=== PATIENT | female | born 1960 | race Caucasian/White ===

== ENCOUNTER 2017-05-12 08:14 | Outpatient (CLI) | payer BC | END 2017-05-12 08:15 | disposition home or self-care (01) | LOC: BICMAMMO 08:14 | PROVIDERS: ATTEND Obstetrics & Gynecology | DX: Z12.31 Encounter for screening mammogram for malignant neoplasm of breast (principal); R92.1 Mammographic calcification found on diagnostic imaging of breast | CPT/HCPCS: 77063; 77067 ==

== ENCOUNTER 2017-09-28 07:50 | Outpatient (CLI) | payer OTHER ==
--- NOTE | 2017-09-28 12:23 | NM ---
MYOCARDIAL PERFUSION STUDY: DATE: 09/28/17. HISTORY: Chest pain, unspecified. COMPARISON: 04/07/11. RADIOPHARMACEUTICALS: 32 mCi Technetium 99m sestamibi, IV at stress, and 10.1 mCi Technetium 99m sestamibi, IV at rest. This examination was performed as an exercise stress myocardial perfusion study following the routine Tino protocol. Resting heart rate is 80 b.p.m. with maximal heart rate of 142 b.p.m., which is 86% of the maximum predicted effective heart rate. FINDINGS: There is normal uptake and distribution of radiotracer seen in throughout the left ventricular myocar dium on both the stress and resting acquisitions. No reversible defect is identified. Quantitative analysis shows no significant reversible defect. Gated images show normal ventricular wall motion an d wall thickening. The calculated left ventricular ejection fraction is 83%. The calculated left ve ntricular ejection fraction on the prior study in 2010 was 76%. IMPRESSION: 1. Normal myocardial perfusion study without evidence of a reversible defect seen to suggest ischemi a. 2. Normal left ventricular ejection fraction of 83%. POS: NKECHI
== END 2017-09-28 07:51 | disposition home or self-care (01) ==
LOC: NM 07:50
PROVIDERS: ATTEND Family Medicine
DX: R07.9 Chest pain, unspecified (principal)
CPT/HCPCS: 78452; 93017; A9500

== ENCOUNTER 2017-11-15 13:02 | Outpatient (CLI) | payer OTHER | END 2017-11-15 13:03 | disposition home or self-care (01) | LOC: BICULT 13:02 | PROVIDERS: ATTEND Otolaryngology Plastic Surgery within the Head & Neck | DX: D49.7 Neoplasm of unspecified behavior of endocrine glands and other parts of nervous system (principal); R51 Headache; E04.1 Nontoxic single thyroid nodule | CPT/HCPCS: 76536 ==

== ENCOUNTER 2018-05-12 08:15 | Outpatient (CLI) | payer OTHER | END 2018-05-12 08:16 | disposition home or self-care (01) | LOC: BICMAMMO 08:15 | PROVIDERS: ATTEND Obstetrics & Gynecology | DX: Z12.31 Encounter for screening mammogram for malignant neoplasm of breast (principal) | CPT/HCPCS: 77063; 77067 ==

== ENCOUNTER 2019-05-23 12:14 | Outpatient (CLI) | payer OTHER ==
--- NOTE | 2019-05-23 13:11 | MMO ---
Bilateral MAMMO Bilat Screen [facility]. CLINICAL HISTORY: Patient is 58 years old and is seen for screening. The patient has no family history of breast cancer. The patient has no personal history of cancer. The patient has a history of Breast reduction in August,. VIEWS: The views performed were: bilateral craniocaudal with tomosynthesis; bilateral mediolateral oblique with tomosynthesis; and bilateral exaggerated craniocaudal. FILMS COMPARED: The present examination has been compared to prior imaging studies performed at [facility] on 04/22/2015, 04/29/2016, 05/12/2017 and 05/12/2018. This study has been interpreted with the assistance of computer-aided detection. MAMMOGRAM FINDINGS: There are scattered fibroglandular densities. There are stable benign appearing calcifications with associated post-surgical scar seen in the upper-outer region of the right breast. There are no suspicious masses, suspicious calcifications, or new areas of architectural distortion. IMPRESSION: THERE IS NO MAMMOGRAPHIC EVIDENCE OF MALIGNANCY. A ROUTINE FOLLOW-UP MAMMOGRAM IN 1 YEAR IS RECOMMENDED. THE RESULTS OF THIS EXAM WERE SENT TO THE PATIENT. ACR BI-RADS Category 2 - Benign finding MAMMOGRAPHY NOTE: 1. A negative mammogram report should not delay a biopsy if a dominant of clinically suspicious mass is present. 2. Approximately 10% to 15% of breast cancers are not detected by mammography. 3. Adenosis and dense breasts may obscure an underlying neoplasm. Reported by: LIAM JASMINE MD Electonically Signed: [id number]
== END 2019-05-23 12:15 | disposition home or self-care (01) ==
LOC: BICMAMMO 12:14
PROVIDERS: ATTEND Obstetrics & Gynecology
DX: Z12.31 Encounter for screening mammogram for malignant neoplasm of breast (principal); Z98.890 Other specified postprocedural states
CPT/HCPCS: 77063; 77067

== ENCOUNTER 2020-05-31 08:22 | Outpatient (CLI) | payer OTHER ==
--- NOTE | 2020-05-31 08:42 | MMO ---
Bilateral MAMMO Bilat Screen [facility]. CLINICAL HISTORY: Patient is 59 years old and is seen for screening. The patient has no family history of breast cancer. The patient has no personal history of cancer. The patient has a history of Breast reduction in August,. VIEWS: The views performed were: bilateral craniocaudal with tomosynthesis and bilateral mediolateral oblique with tomosynthesis. FILMS COMPARED: The present examination has been compared to prior imaging studies performed at [facility] on 04/29/2016, 05/12/2017, 05/12/2018 and 05/23/2019. This study has been interpreted with the assistance of computer-aided detection. MAMMOGRAM FINDINGS: There are scattered fibroglandular densities. There are benign appearing calcifications seen in both breasts. There are stable post-operative changes right breast. There are no suspicious masses, suspicious calcifications, or new areas of architectural distortion. IMPRESSION: THERE IS NO MAMMOGRAPHIC EVIDENCE OF MALIGNANCY. A ROUTINE FOLLOW-UP MAMMOGRAM IN 1 YEAR IS RECOMMENDED. THE RESULTS OF THIS EXAM WERE SENT TO THE PATIENT. ACR BI-RADS Category 2 - Benign finding MAMMOGRAPHY NOTE: 1. A negative mammogram report should not delay a biopsy if a dominant of clinically suspicious mass is present. 2. Approximately 10% to 15% of breast cancers are not detected by mammography. 3. Adenosis and dense breasts may obscure an underlying neoplasm. Reported by: IRINEO HARRELL MD Electonically Signed: [id number]
== END 2020-05-31 08:23 | disposition home or self-care (01) ==
LOC: BICMAMMO 08:22
PROVIDERS: ATTEND Family Medicine
DX: Z12.31 Encounter for screening mammogram for malignant neoplasm of breast (principal); Z98.82 Breast implant status
CPT/HCPCS: 77063; 77067

== ENCOUNTER 2025-04-26 14:24 | Outpatient (CLI) | payer OTHER | END 2025-04-26 14:25 | disposition home or self-care (01) | LOC: BICCT 14:24 | PROVIDERS: ATTEND Nurse Practitioner Family | DX: Z13.6 Encounter for screening for cardiovascular disorders (principal); E78.00 Pure hypercholesterolemia, unspecified; I70.90 Unspecified atherosclerosis | CPT/HCPCS: 75571 ==